=== PATIENT | male | born 1985 | race Caucasian/White ===

== ENCOUNTER 2023-04-11 13:08 | Day surgery (SDC) | payer OTHER ==
[~2023-04-11 13:08] MED LIST: Lidocaine 1% 8 ML ONE; Midazolam 1 MG/ML 2 ML SDV ONE; Propofol 200 MG/20 ML SDV ONE; Rocuronium 50 MG/5 ML Vial ONE; Succinylcholine 200 MG/10 ML MDV ONE; fentaNYL 250 MCG/5 ML SDV ONE
[2023-04-11] MEDS ORDERED: Metoclopramide 10 MG/2 ML SDV ONE (13:22)
[2023-04-11] MEDS ORDERED: Ondansetron 4 MG/2 ML SDV ONE (13:22)
[2023-04-11] MEDS ORDERED: Bupivacaine 0.5% 30 ML SDV ONE (13:40)
[2023-04-11] MEDS ORDERED: Lidocaine 1% 30 ML SDV ONE (13:40)
[2023-04-11] MEDS ORDERED: EPINEPHrine 1 MG/ML SDV ONE (13:40)
[2023-04-11] MEDS ORDERED: Lactated Ringers 1,000 ML IV SCH (14:00)
[2023-04-11] MEDS ORDERED: Ketorolac 30 MG/ML SDV ONE (14:00)
[2023-04-11] MEDS ORDERED: Dexamethasone 4 MG/ML 5 ML MDV ONE (14:02)
[2023-04-11] MEDS ORDERED: metroNIDAZOLE/Normal Saline 500 MG in Premix Bag 1 BAG IV ONE (14:05)
[2023-04-11] MEDS ORDERED: Levofloxacin/Dextrose 5%-Water 750 MG in Premix Bag 1 BAG IV ONE (14:05)
[2023-04-11] MEDS ORDERED: Sugammadex Sodium 200 MG/2 ML VIAL ONE (14:07)
[2023-04-11] MEDS ORDERED: HYDROmorphone 0.5 MG/0.5 ML Syringe ONE (14:08)
[2023-04-11] MEDS ORDERED: metroNIDAZOLE/Normal Saline 100 ML ONE (14:09)
[2023-04-11] MEDS ORDERED: fentaNYL 100 MCG/2 ML SDV IVPUSH PRN (14:55)
[2023-04-11] MEDS ORDERED: HYDROmorphone 0.5 MG/0.5 ML Syringe IVPUSH PRN (14:55)
[2023-04-11] MEDS ORDERED: Acetaminophen/oxyCODONE 325-5 MG Tab PO ONE (17:36)
== END 2023-04-11 18:06 | disposition home or self-care (01) ==
LOC: JD.SDS 13:08
PROVIDERS: ATTEND Surgery
DX: K35.33 Acute appendicitis with perforation, localized peritonitis, and gangrene, with abscess (principal); Z79.899 Other long term (current) drug therapy; Z88.8 Allergy status to other drugs, medicaments and biological substances
CPT/HCPCS: 44970; A9270; J0171; J0330; J1100; J1170; J1836; J1885; J1956; J2250; J2405; J2704; J2765; J3010; J3490; J7120; J0665